=== PATIENT | female | born 1940 | race Caucasian/White ===

== ENCOUNTER 2019-03-09 10:30 | Day surgery (SDC) | payer MEDICARE, OTHER ==
[~2019-03-09] VITALS: Ht 172.7 cm; Wt 89.5 kg
[2019-03-09] MEDS ORDERED: LEVOTHYROXINE112 MCG PO (12:43)
[2019-03-09] MEDS ORDERED: COZAAR100 MG PO (12:44)
[2019-03-09] MEDS ORDERED: HYDROCHLOROTHIA25 MG PO (12:45)
[2019-03-09] MEDS ORDERED: PEPCID AC20 MG PO (12:45)
[2019-03-09] MEDS ORDERED: TENORMIN25 MG PO (12:45)
[2019-03-09] MEDS ORDERED: BACLOFEN10 MG PO (12:46)
[2019-03-09] MEDS ORDERED: ULTRAM50 MG PO (12:46)
[2019-03-09] MEDS ORDERED: LIPITOR20 MG PO (12:46)
[2019-03-09] MEDS ORDERED: VALIUM5 MG PO (12:47)
[2019-03-09] MEDS ORDERED: CARAFATE1 G PO (12:47)
[2019-03-09 13:00] VITALS: BP 128/68; Ht 172.7 cm; Wt 89.5 kg
--- NOTE | 2019-03-09 16:05 | NUR ---
DC INSTRUCTIONS GIVEN TO PT/SPOUSE. STATE UNDERSTANDING. DC'D IV CATH FULLY INTACT.
--- NOTE | 2019-03-09 16:09 | NUR ---
PT LEFT UNIT VIA WC AT 1616
--- NOTE | 2019-03-10 10:28 | OP ---
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 PROCEDURE: Esophagogastroduodenoscopy with polypectomy utilizing the argon plasma senior validation engineer. SURGEON: Geri Larkin MD VETERINARY MICROBIOLOGIST: None. BLOOD LOSS: Minimal. ANESTHESIA: IV sedation. COMPLICATIONS: None. The risks, possible complications, and alternatives to the procedure were explained to the patient. She elects to proceed. Discussion specifically included, but was not limited to, bleeding, requiring emergency reoperation; endoscopic perforation. ENDOSCOPIC COURSE: The patient was conveyed to the endoscopy suite electively on 03/09/2019. IV sedation was induced by the anesthesia staff. A bite-block was inserted. A gastroscope was inserted into the mouth. It was advanced into the hypopharynx. The esophagus was easily intubated as were the stomach and the duodenum. Upon withdrawal, retroflexed and angulus views were obtained. I then advanced into the duodenum again. There was a fold that had had a previous biopsy and it was at this site that the duodenal adenoma had been removed. This area was rebiopsied with cold endoscopic biopsy forceps. I then treated it utilizing the argon plasma senior validation engineer with the esophageal setting in the forced mode. I then slowly withdrew the endoscope. The patient was then conveyed back to her room. I will plan to see her in my office in 2-3 weeks. I will plan for her next upper endoscopy with biopsies to take place in 2 years. TRANSINT:[id number] Voice Confirmation ID: [id number] DOCUMENT ID: [id number] GERI LARKIN MD at 1028 CC: SHARON SANCHEZ MD and YURY LEMA [id number] DICTATION DATE: 03/09/19 1537 SALES ADMINISTRATOR: 03/09/19 1831 [facility] [place] 03/09/19 [id number] [place] [address]
== END 2019-03-09 16:16 | disposition home or self-care (01) ==
LOC: D.OPS 10:30
PROVIDERS: ATTEND Surgery
DX: D13.2 Benign neoplasm of duodenum (principal); Z01.812 Encounter for preprocedural laboratory examination